=== PATIENT | female | born 1975 | race Caucasian/White ===

== ENCOUNTER 2017-10-12 10:00 | Day surgery (SDC) | payer OTHER | END 2017-10-12 14:10 | disposition home or self-care (01) | LOC: AMB-ENDOS 10:00 | DX: K57.30 Diverticulosis of large intestine without perforation or abscess without bleeding (principal); K63.5 Polyp of colon ==

== ENCOUNTER 2019-05-02 08:33 | Day surgery (SDC) | payer OTHER | END 2019-05-02 13:40 | disposition home or self-care (01) | LOC: AMB-ENDOS 08:33 | DX: D12.0 Benign neoplasm of cecum (principal) ==